=== PATIENT | female | born 1990 | race American Indian/Alaskan Native ===

== ENCOUNTER 2018-03-10 08:30 | Inpatient (IN) | payer MEDICAID ==
[2018-03-14] MEDS ORDERED: LACTATED RINGERS 1,000 ML IV ONE (05:59)
[2018-03-14] MEDS ORDERED: PITOCin/NS 20 UNIT/1000ML DRIP 20 UNITS/1,000 ML BAG IV SCH ×2 (07:00→15:32)
[2018-03-14] MEDS ORDERED: LACTATED RINGERS 1,000 ML IV SCH ×2 (07:00→20:00)
[2018-03-14 07:11] LABS: Hematocrit 37.4 % (30.3-42.9); Hemoglobin 12.7 gm/dl (10.1-14.3); Mean Corpuscular HGB Conc 34 % (30-34); Mean Corpuscular Hemoglobin 27 pg (28-32); Mean Corpuscular Volume 80 fl (79-97); Platelet Count 242 K/mm3 (140-440); Red Blood Count 4.68 M/mm3 (3.65-5.03); Red Cell Distribution Width 15.5 % (13.2-15.2)
[2018-03-14] MEDS ORDERED: MORPHINE ONE (07:41)
[2018-03-14] MEDS ORDERED: NARCAN 0.4 MG/1 ML IV PRN ×2 (07:46→15:32)
[2018-03-14] MEDS ORDERED: ZOFRAN IV PRN (07:46)
[2018-03-14] MEDS ORDERED: PHENERGAN PO PRN (07:46)
[2018-03-14] MEDS ORDERED: DILAUDID IV PRN ×2 (07:46)
[2018-03-14] MEDS ORDERED: PHENERGAN PR PRN (07:46)
--- NOTE | 2018-03-14 07:46 | Anesthesia Consultation ---
Anesthesia Consult and Med Hx Date of service: 03/14/18 - Airway Anesthetic Teeth Evaluation: Good ROM Head & Neck: Adequate Mental/Hyoid Distance: Adequate Mallampati Class: Class II Intubation Access Assessment: Good - Pulmonary Exam CTA: Yes - Cardiac Exam Cardiac Exam: No Murmur - Pre-Operative Health Status ASA Pre-Surgery Classification: ASA2 Proposed Anesthetic Plan: Spinal - Pulmonary Hx Asthma: Yes COPD: No Hx Pneumonia: No - Cardiovascular System Hx Hypertension: No - Central Nervous System Hx Seizures: No Hx Psychiatric Problems: No - Endocrine Hx Renal Disease: No Hx End Stage Renal Disease: No Hx Hypothyroidism: No Hx Hyperthyroidism: Yes - Hematic Hx Anemia: No Hx Sickle Cell Disease: No - Other Systems Hx Alcohol Use: No
--- NOTE | 2018-03-14 07:46 | Anesthesia Day of Surgery ---
Anesthesia Day of Surgery - Day of Surgery Patient Examined: Yes Patient H&P Reviewed: Yes Patient is NPO: Yes
[2018-03-14] MEDS ORDERED: CLEOCIN 900 MG/50 mL 900 MG/50 ML BAG IV ONE (07:50)
[2018-03-14] MEDS ORDERED: PEPCID IV ONE (08:00)
[2018-03-14] MEDS ORDERED: SODIUM CHLORIDE FLUSH SYRINGE 10 ML IV NR ×2 (08:00→15:32)
[2018-03-14] MEDS ORDERED: REGLAN IV ONE (08:00)
[2018-03-14] MEDS ORDERED: BICITRA PO ONE (08:00)
[2018-03-14] MEDS ORDERED: XYLOCAINE MPF 2% ONE (08:14)
--- NOTE | 2018-03-14 08:14 | History and Physical Report ---
History of Present Illness Date of examination: 03/14/18 Date of admission: 03/14/18 05:46 Chief complaint: I'm here for my History of present illness: Patient is a 27 year old who presents to L&D for elective repeat and BTL at 39+ weeks with EDC03/19/18. Patient has had an uncomplicated course. She entered care in the first trimester Past History Past Medical History: hypertension, thyroid disease Past Surgical History: section Social history: single - Obstetrical History Expected Date of Delivery: 03/18/18 Actual Gestation: 39 Week(s) 3 Day(s) : 2 Para: 1 Number of Living Children: 1 Medications and Allergies Allergies Allergy/AdvReac Type Severity Reaction Status Date / Time amoxicillin Allergy Hives Verified 03/14/18 05:58 erythromycin base Allergy Hives Verified 03/14/18 05:58 penicillin G Allergy Hives Verified 03/14/18 05:58 Active Meds: Active Medications Hydromorphone HCl (Dilaudid) 0.5 mg IV Q5M PRN PRN Reason: Breakthrough Pain Hydromorphone HCl (Dilaudid) 0.5 mg IV Q4H PRN PRN Reason: breakthrough pain > 7/10 Lactated Ringer's (Lactated Ringers) 1,000 mls @ 2,250 mls/hr IV PREOP ANANDA Stop: 03/15/18 07:27 Oxytocin/Sodium Chloride (Pitocin/Ns 20 Unit/1000ml Drip) 20 units in 1,000 mls @ 0 mls/hr IV TITR ANANDA Naloxone HCl (Narcan 0.4 Mg/1 Ml) 0.2 mg IV Q2MIN PRN PRN Reason: Res Rate </= 8 or 02 SAT < 92% Ondansetron HCl (Zofran) 4 mg IV Q8H PRN PRN Reason: Nausea And Vomiting Promethazine HCl (Phenergan) 25 mg PO Q6H PRN PRN Reason: Nausea And Vomiting Promethazine HCl (Phenergan) 25 mg AK Q6H PRN PRN Reason: Nausea And Vomiting Sodium Chloride (Sodium Chloride Flush Syringe 10 Ml) 10 ml IV PRN NR Stop: 03/14/18 23:00 Review of Systems All systems: negative Genitourinary: pelvic pain - Vital Signs Vital signs: Vital Signs Pulse BP 93 H 132/64 03/14/18 06:10 03/14/18 06:10 Temp Pulse Resp BP Pulse Ox 98.0 F 93 H 18 132/64 03/14/18 06:41 03/14/18 06:41 03/14/18 06:41 03/14/18 06:41 - Physical Exam Breasts: Positive: deferred Cardiovascular: Regular rate, Normal S1, Normal S2 Lungs: Positive: Clear to auscultation, Normal air movement Abdomen: Positive: normal appearance, soft, normal bowel sounds. Negative: distention, tenderness Vulva: both: normal Vagina: Positive: normal moisture. Negative: discharge Cervix: Negative: lesion, discharge Uterus: Positive: normal size, normal contour Adnexa: both: normal Anus/Rectum: Positive: normal perianal skin, heme negative. Negative: rectal mass, hemorrhoids Extremities: Deep Tendon Reflex Grade: Normal +2 - Obstetrical FHR: auscultation normal Results Result Diagrams: 03/14/18 06:10 Abnormal lab results 03/14/18 Range/Units 06:10 MCH 27 L (28-32) pg RDW 15.5 H (13.2-15.2) % All other labs normal. Assessment and Plan IUP at 39+ weeks here for repeat . Admit to L7D. Begin meds. Anticipate delivery
[2018-03-14] MEDS ORDERED: WATER FOR IRRIG STERILE IR ONE (08:45)
[2018-03-14] MEDS ORDERED: NACL 0.9% IR ONE (08:45)
--- NOTE | 2018-03-14 09:31 | Procedure Note ---
OB Delivery Note - Delivery Date of Delivery: 03/14/18 Surgeon: KWAME MOTA Estimated blood loss: 500cc - Section Preop diagnosis: repeat , desires sterilization Postop diagnosis: same section procedure: repeat low transverse, bilateral tubal ligation Disposition: PACU Complications: none Narrative: urine out 100 ivf 1400 born 858 specimen r and l tube - Infant A at 1 minute: 8 at 5 minutes: 8 Gender: Male (5'14 2673 grams)
[2018-03-14] MEDS ORDERED: MOTRIN PO PRN (15:32)
[2018-03-14] MEDS ORDERED: TUCKS PAD TP PRN (15:32)
[2018-03-14] MEDS ORDERED: LANSINOH TP PRN (15:32)
[2018-03-14] MEDS: TORADOL IV PRN (18:20)
[2018-03-14] MEDS ORDERED: LACTATED RINGERS 1,000 ML ONE (18:36)
[2018-03-14] MEDS: BENADRYL IV PRN (20:32)
[2018-03-14 20:38] LABS: Hematocrit 32.9 % (30.3-42.9); Hemoglobin 11.1 gm/dl (10.1-14.3)
[2018-03-15] MEDS: MYLICON PO PRN (01:35)
[2018-03-15] MEDS: TORADOL IV PRN (01:36)
[2018-03-15] MEDS ORDERED: BOOSTRIX IM ONE (06:00)
[2018-03-15] MEDS ORDERED: M-M-R II VACCINE SUB-Q ONE (06:00)
[2018-03-15] MEDS: PERCOCET 5/325 PO PRN ×3 (08:15→22:21)
[2018-03-15] MEDS: BENADRYL IV PRN (09:25)
[2018-03-15] MEDS: FEOSOL PO SCH (10:15)
[2018-03-15] MEDS: PRENATAL VITAMIN PO SCH (10:15)
[2018-03-16] MEDS: MYLICON PO PRN (05:07)
[2018-03-16] MEDS: PERCOCET 5/325 PO PRN ×2 (05:07→12:10)
[2018-03-16] MEDS: PRENATAL VITAMIN PO SCH (12:11)
[2018-03-16] MEDS: FEOSOL PO SCH (12:11)
--- NOTE | 2018-03-16 12:37 | Progress Note ---
Assessment and Plan POD 2 from [facility]. was transferred to [place] due to multiple heart anomalies. Patient requesting discharge on today. Subjective - Subjective Date of service: 03/16/18 Interval history: Patient is a 27 year old who presents to L&D for elective repeat and BTL at 39+ weeks with EDC03/19/18. Patient has had an uncomplicated course. She entered care in the first trimester Patient reports: appetite normal, voiding normally, pain well controlled, ambulating normally [place]: transported Objective - Vital Signs Latest vital signs: Vital Signs Temp Pulse Resp BP Pulse Ox 03/16/18 12:10 20 03/16/18 07:37 98.5 F 94 H 20 134/71 97 03/16/18 00:30 98.4 F 79 18 105/68 03/15/18 16:20 98.7 F 106 H 18 140/79 03/15/18 14:00 20 Intake and Output 03/15/18 03/16/18 03/16/18 22:59 06:59 14:59 Intake Total 240 300 Balance 240 300 Intake: Oral 240 Intake, Free Water 300 Other: Total, Intake Amount 240 - Exam Cardiovascular: Present: Regular rate, Normal S1, Normal S2 Lungs: Present: Clear to auscultation, Normal air movement Abdomen: Present: normal appearance, soft Vulva: both: normal Uterus: Present: normal, firm, fundal height below umbilicus Extremities: Present: normal Incision: Present: normal, dry, intact
--- NOTE | 2018-03-16 12:39 | Discharge Summary ---
Providers - Providers Date of Admission: 03/14/18 05:46 Date of discharge: 03/16/18 Attending physician: KWAME MOTA Primary care physician: KAWME MOTA Hospitalization Reason for admission: section Delivery: Procedure: repeat low transverse Procedure details: see op report Incision: normal, dry, intact complications: none Discharge diagnosis: IUP at term delivered [place] baby: male Condition at discharge: Good Disposition: DC-01 TO HOME OR SELFCARE Plan - Discharge Medications Prescriptions: Docusate Sodium [Colace] 100 mg PO BID PRN #60 capsule PRN Reason: Constipation Ibuprofen [Motrin] 800 mg PO Q8HR PRN #40 tablet PRN Reason: Pain , Severe (7-10) Oxycodone HCl/Acetaminophen [Percocet 7.5/325 mg] 1 each PO Q6HR PRN #40 tablet PRN Reason: Pain - Provider Discharge Summary Activity: routine, no sex for 6 weeks, no heavy lifting 4 weeks, no strenuous exercise Diet: routine Instructions: routine Additional instructions: [] Smoking cessation referral if applicable(refer to patient education folder for contact #) [] Refer to [facility]'s [facility] Booklet Call your doctor immediately for: * Fever > 100.5 * Heavy vaginal bleeding ( >1 pad per hour) * Severe persistent headache * Shortness of breath * Reddened, hot, painful area to leg or breast * Drainage or odor from incision. * Keep incision clean and dry at all times and follow doctor's instructions regarding bathing/showering - Follow up plan Follow up: KWAME MOTA MD [Primary Care Provider] - 7 Days
--- NOTE | 2018-03-16 12:43 | Operative Report ---
Operative Report Operative Report: The operative report for patient Danilo Jain Date of service 03/14/2018 Preoperative diagnosis: Intrauterine at 39 -2/7 weeks 2. Previous 3. Undesired fertility Postoperative diagnosis: Same Procedure: Repeat low transverse section with bilateral tubal ligation Surgeon: Dr. Dinah Shannon EBL: [900] Urine output: [150] IV fluids: [800 mL] Findings: Viable [male] in the vertex occiput posterior position. Weight 5 lbs. 14 oz. 3576 g Apgars 9 and 9]. Otherwise normal pelvic anatomy Specimens: Portion of right and left fallopian tube Complications: None Procedure: The patient was admitted to the OR with IV running and in place. She was properly identified as herself. Her spinal had been placed in the room and she was already under the effects of anesthesia upon entry into the OR. She was placed in the dorsal supine position with a leftward tilt. A [place] catheter was inserted. She was then prepped and draped in the normal sterile fashion. An Allis test was used to confirm adequate anesthesia. Once confirmed , the incision was made with the scalpel and carried to the underlying fascia using the scalpel and the Bovie. The fascia was incised in the midline and incision was extended bilaterally using the curved Phillips scissors. The fascia was then dissected from the underlying rectus muscles in a series of sharp and blunt dissection using the Phillips scissors. Muscles were in the in the midline sharply using Metzenbaum scissors and the peritoneum was entered into bluntly using the surgeon's fingers. And Donna retractor was placed into the incision. A bladder blade was then placed into the incision to protect the bladder. Following this the bladder flap was created. Hysterotomy incision was then made in the scalpel. Upon uterine entry, the amniotic sac was ruptured for clear fluid. The was then delivered in the occiput anterior position. His mouth and nose were suctioned on the field. The cord was clamped and cut and he was handed to the waiting NICU personnel. The uterus was then exteriorized and cleared of all clots and debris. The hysterotomy incision was then closed in a running locked fashion using 0 Vicryl. The abdomen was then copiously irrigated with warm normal saline. Attention was turned to the fallopian tubes. Each was grasped with a [place] clamp. The tubes were ligated in the [place] style. There was excellent hemostasis following this portion of the procedure. Following this the uterus was replaced into the abdominal cavity. Hemostasis was assured. At this point the muscles were reapproximated in the midline using individual sutures of 0 Vicryl. Following this the fascia was closed in a running fashion using 0 Vicryl. Tissue was then copiously irrigated. A retention suture was placed in the subcuticular fat. Skin was closed with malcolm. The sponge lap needle and instrument counts were correct 2. The patient tolerated the procedure well. She was taken to recovery in stable condition.
[2018-03-16 17:03] VITALS: BP 143/88
== END 2018-03-16 16:20 | disposition home or self-care (01) | DRG 765 ==
LOC: APU 03-14 05:46 → OB 03-14 11:28
PROVIDERS: ADMIT Obstetrics & Gynecology; ATTEND Obstetrics & Gynecology
PROC: 10D00Z1 Extraction of Products of Conception, Low, Open Approach (ICD-10-PCS; principal; 2018-03-14)
PROC: 0UT70ZZ Resection of Bilateral Fallopian Tubes, Open Approach (ICD-10-PCS; 2018-03-14)
DX: O34.219 Maternal care for unspecified type scar from previous cesarean delivery (principal); O16.4 Unspecified maternal hypertension, complicating childbirth; Z3A.39 39 weeks gestation of pregnancy; Z37.0 Single live birth; O99.52 Diseases of the respiratory system complicating childbirth; J45.909 Unspecified asthma, uncomplicated; E05.90 Thyrotoxicosis, unspecified without thyrotoxic crisis or storm; Z88.0 Allergy status to penicillin; Z30.2 Encounter for sterilization; O99.284 Endocrine, nutritional and metabolic diseases complicating childbirth
CPT/HCPCS: 36415; 82803; 85014; 85018; 85027; 86592; 86850; 86900; 86901; 88302; 90471; 90715; J1170; J1200; J1885; J2270; J2590; J2765; J7120